=== PATIENT | male | born 1960 | race Caucasian/White ===

== ENCOUNTER 2018-02-23 11:12 | Day surgery (SDC) | payer BC ==
[~2018-02-23 11:12] MED LIST: Lactated Ringers 1,000 ML IV SCH; Midazolam 1 MG/ML 2 ML SDV ONE; Propofol 200 MG/20 ML SDV ONE; fentaNYL 100 MCG/2 ML SDV ONE
--- NOTE | 2018-02-23 11:36 | PCM.PREANE ---
Preanesthetic Assessment - Anesthesia/Transfusion/Family Hx Anesthesia History: Prior Anesthesia Without Reaction Family History of Anesthesia Reaction: No Transfusion History: No Prior Transfusion(s) - Review of Systems General: No Symptoms Pulmonary: No Symptoms Cardiovascular: No Symptoms Gastrointestinal: No Symptoms Neurological: No Symptoms Other: Reports: None - Physical Assessment NPO Status Date: 02/22/18 O2 Sat by Pulse Oximetry: 96 Respiratory Rate: 16 Vital Signs: Last Vital Signs Temp 36.8 C 02/23/18 11:22 Pulse 66 02/23/18 11:22 Resp 16 02/23/18 11:22 BP 136/75 02/23/18 11:22 Pulse Ox 96 02/23/18 11:22 Height: 1.83 m Weight: 110.677 kg ASA Class: 2 Mental Status: Alert & Oriented x3 Airway Class: Mallampati = 1 Dentition: Reports: Normal Dentition ROM/Head Extension: Full Lungs: Clear to Auscultation, Normal Respiratory Effort Cardiovascular: Regular Rate, Regular Rhythm - Allergies Allergies/Adverse Reactions: Allergies Allergy/AdvReac Type Severity Reaction Status Date / Time aspirin Allergy Stomach Verified 02/21/18 08:20 Upset - Anesthesia Plan Pre-Op Medication Ordered: None - Acknowledgements Anesthesia Type Planned: MAC Pt an Appropriate Candidate for the Planned Anesthesia: Yes Alternatives and Risks of Anesthesia Discussed w Pt/Guardian: Yes Pt/Guardian Understands and Agrees with Anesthesia Plan: Yes PreAnesthesia Questionnaire HEENT History: Reports: Impaired Vision Other HEENT History: wears glasses Cardiovascular History: Reports: None Respiratory History: Reports: None Gastrointestinal History: Reports: GERD Genitourinary History: Reports: Renal Calculus Musculoskeletal History: Reports: Fracture Other Musculoskeletal History: hx alfredo wrist fx's Neurological History: Reports: None Psychiatric History: Reports: None Endocrine/Metabolic History: Reports: None Hematologic History: Reports: None Immunologic History: Reports: None Oncologic (Cancer) History: Reports: None Dermatologic History: Reports: None - Infectious Disease History Infectious Disease History: Reports: Chicken Pox - Past Surgical History Head Surgeries/Procedures: Reports: None HEENT Surgical History: Reports: None Cardiovascular Surgical History: Reports: None Respiratory Surgical History: Reports: None GI Surgical History: Reports: Hernia Repair/Other, Other (See Below) Other GI Surgeries/Procedures: alfredo inguinal hernia repair Male Surgical History: Reports: Kidney Stone Extraction Endocrine Surgical History: Reports: None Neurological Surgical History: Reports: None Musculoskeletal Surgical History: Reports: Arthroscopic Knee, ORIF Other Musculoskeletal Surgeries/Procedures:: pinning left wrist fx, closed reduction right wrist, removal of hardware to left wrist Oncologic Surgical History: Reports: None Dermatological Surgical History: Reports: None - SUBSTANCE USE Smoking Status *Q: Never Smoker Tobacco Use Within Last Twelve Months: No Days Per Week of Alcohol Use: 0 Recreational Drug Use History: No - HOME MEDS Home Medications: Home Meds Calcium Carbonate [Tums] 1 tab.chew CHEW ASDIRECTED PRN 02/21/18 [History] - CURRENT (IN HOUSE) MEDS Current Meds: Current Medications Lactated Ringer's (Ringers, Lactated) 1,000 mls @ 125 mls/hr IV ASDIRECTED [facility] Last Admin: 02/23/18 11:25 Dose: 125 mls/hr Discontinued Medications Fentanyl (Sublimaze) Confirm Administered Dose 100 mcg .ROUTE .STK-MED ONE Stop: 02/23/18 08:41 Midazolam HCl (Versed 1 Mg/Ml) Confirm Administered Dose 2 mg .ROUTE .STK-MED ONE Stop: 02/23/18 08:42 Propofol (Diprivan 20 Ml) Confirm Administered Dose 200 mg .ROUTE .STK-MED ONE Stop: 02/23/18 08:41
[2018-02-23] MEDS ORDERED: Propofol 200 MG/20 ML SDV ONE (11:45)
--- NOTE | 2018-02-23 12:13 | PCM.OPNOTE ---
- General Post-Op/Procedure Note Date of Surgery/Procedure: 02/23/18 Operative Procedure(s): egd w bx and colonoscopy w bx Findings: see [id number] Pre Op Diagnosis: gerd and blood in stool Post-Op Diagnosis: Same Primary Surgeon: Brice Ag Pathology: egd and colon TI (?) bx Complications: None Condition: Good
[2018-02-23 12:31] VITALS: BP 129/78
--- NOTE | 2018-02-23 12:41 | PCM48HPAN ---
Post Anesthesia Note - EVALUATION WITHIN 48HRS OF ANESTHETIC Vital Signs in Normal Range: Yes Patient Participated in Evaluation: Yes Respiratory Function Stable: Yes Airway Patent: Yes Cardiovascular Function Stable: Yes Hydration Status Stable: Yes Pain Control Satisfactory: Yes (cramping) Nausea and Vomiting Control Satisfactory: Yes Mental Status Recovered: Yes Resp Rate: 14
--- NOTE | 2018-02-23 20:34 | OR ---
SURGEON: Brice Ag MD DATE OF PROCEDURE: 02/23/2018 PREOPERATIVE DIAGNOSES: Gastroesophageal reflux disease and blood in stool. POSTOPERATIVE DIAGNOSIS: Gastroesophageal reflux disease and blood in stool. PROCEDURE PERFORMED: EGD with biopsy and colonoscopy with biopsy. PROCEDURE DETAILS: EGD: The patient was taken to the endoscopy room, and with the GLASS INSTALLER, Diprivan was administered. A well-lubricated EGD scope was gently inserted through the oropharynx, down the esophagus, passing through the gastroesophageal junction, into the stomach. The mucosa was examined upon the passage. Any etiology will be noted. Once in the stomach, we continued to advance to the distal antrum, passed through the pylorus into the second portion of the duodenum. Again, the mucosa was examined for any abnormality and etiology. The scope was then retrieved back to the stomach and then retroflexed to look at the fundus of the stomach. If a biopsy was indicated, we will biopsy the antrum, body, and gastroesophageal junction. The air will be sucked out while the scope is retrieved to reduce the patient's discomfort. The patient tolerated the procedure well. There were no intraoperative complications. Dr. Ag was present through the whole procedure. Prior to surgery, a time-out had been called, the patient identified, procedure identified and antibiotic administered. COLONOSCOPY: The patient was taken to the endoscopy room. A time out was called, patient identified, and procedure identified. Diprivan was then administrated. Patient went from awake to sleep, hearing doctor talking or door closing is normal. Perineum inspection and digital examination were then performed. A well-lubricated colonoscope was gently inserted through the rectum, advanced past the rectosigmoid junction, the descending colon, splenic flexure, transverse colon, hepatic flexure, ascending colon, arrived to the cecum. Cecum was identified as dictated in the finding. Then the scope was carefully withdrawn while attention was paid to the mucosal surface for any abnormality. Air will be sucked out during the scope withdrawal. At the rectum, retroflexed to examine any rectal diseases, fistula or hemorrhoids. During mucosal examination, picture taken and biopsy performed. Patient tolerated procedure well. There were no intraoperative complications, and Dr. Ag was present throughout the whole procedure. FINDINGS: EGD FINDINGS: 1. The patient is easily sedated with GLASS INSTALLER and Diprivan. The patient is soundly snoring. 2. Oropharynx and proximal esophagus are free of disease. No infection, stricture, or inflammation. Distal esophagus at GE junction at 40 shows mild color change consistent with mild acid reflux. Stomach rugae is normal in appearance and there is no blood, bile, or food observed. Antrum is mildly inflamed. Duodenum was grossly normal in appearance. Scope retrieved back to the stomach and retroflexed to look at the fundus of the stomach. There was no hiatal hernia. Biopsy done at antrum, body, GE junction at 40, and sucked out the air while scope pulling out. There was one tiny little polyp, like 2 mm, in the stomach body. It was biopsied and removed. COLONOSCOPY FINDINGS: 1. The patient is easily sedated with GLASS INSTALLER and Diprivan. The patient is soundly snoring. 2. Bowel prep is average with some stool ball release from the diverticula. Otherwise, there is some liquid stool. Bowel prep was above average. Colon is rather straight forward. Cecum indicated by ileocecal fold, one- to-one indentation, and appendiceal orifice. Light emittance is not observed. The terminal ileum is quite prominent, almost like a 2 cm mass. It was biopsied several times in the cecum. Other than that, the patient does not have other mass, polyp, inflammation, stricture, ulceration, AV malformation, blood. The patient does have diverticulitis on the left colon mostly and a couple of them in the right colon, nothing in the transverse colon. No signs or symptoms of diverticulitis, and the patient have internal hemorrhoid and external hemorrhoid. The patient would benefit from repeat colonoscopy 10 years from today or if the biopsy mass come back indicate otherwise may not be 10 years from today. If there is any concern on the terminal ileum mass, then probably would benefit a repeat colonoscopy in maybe 12-18 months. IBETH / GIOVANA /[id number] RANJIT
== END 2018-02-23 12:32 | disposition home or self-care (01) ==
LOC: MW.SDS 11:12
PROVIDERS: ATTEND Surgery
DX: K29.50 Unspecified chronic gastritis without bleeding (principal); K20.9 Esophagitis, unspecified; K64.8 Other hemorrhoids; K64.4 Residual hemorrhoidal skin tags; K63.89 Other specified diseases of intestine; K21.9 Gastro-esophageal reflux disease without esophagitis; Z79.2 Long term (current) use of antibiotics; Z79.899 Other long term (current) drug therapy; Z88.6 Allergy status to analgesic agent; Z98.890 Other specified postprocedural states; Z87.442 Personal history of urinary calculi; Z80.0 Family history of malignant neoplasm of digestive organs
CPT/HCPCS: 43239; 45380; 88305; 88312; J2250; J3010; J7120; 00813; J2704

== ENCOUNTER 2018-05-16 20:30 | Observation (INO) | payer BC ==
[2018-05-16] MEDS ORDERED: Sodium Chloride 0.9% 10 ML Syringe FLUSH PRN (20:47)
[2018-05-16] MEDS ORDERED: Sodium Chloride 0.9% 2.5 ML Syringe FLUSH PRN (20:47)
[2018-05-16] MEDS ORDERED: Aspirin 325 MG Tab PO ONE (20:48)
--- NOTE | 2018-05-16 20:48 | EDM.PDOC ---
ED HPI GENERAL MEDICAL PROBLEM - General Chief Complaint: Respiratory Problem Stated Complaint: SHORTNESS OF BREATH Time Seen by Provider: 05/16/18 20:32 - History of Present Illness INITIAL COMMENTS - FREE TEXT/NARRATIVE: HISTORY AND PHYSICAL: History of present illness: Patient is a 58-year-old white male who presently does not smoke but has a 2030- pack-year history who presents with a concern of exertional dyspnea worse over the last 1 month he denies chest pain although he does describe inability to take a deep breath and states that this is absolutely exertional and he first noted it a month ago and is going up some stairs. He did no diaphoresis nausea vomiting or palpitations Review of systems: As per history of present illness and below otherwise all systems reviewed and negative. Past medical history: As per history of present illness and as reviewed below otherwise noncontributory. Surgical history: As per history of present illness and as reviewed below otherwise noncontributory. Social history: No reported history of drug or alcohol abuse. Family history: As per history of present illness and as reviewed below otherwise noncontributory. Physical exam: HEENT: Atraumatic, normocephalic, pupils reactive, negative for conjunctival pallor or scleral icterus, mucous membranes moist, throat clear, neck supple, nontender, trachea midline. Lungs: Clear to auscultation, diminished breath sounds equal bilaterally, chest nontender. Heart: S1S2, regular, negative for clicks, rubs, or JVD. Abdomen: Soft, nondistended, nontender. Negative for masses or hepatosplenomegaly. Negative for costovertebral tenderness. Pelvis: Stable nontender. Genitourinary: Deferred. Rectal: Deferred. Extremities: Atraumatic, negative for cords or calf pain. Neurovascular unremarkable. Neuro: Awake, alert, oriented. Cranial nerves II through XII unremarkable. Cerebellum unremarkable. Motor and sensory unremarkable throughout. Exam nonfocal. Diagnostics: CBC CMP PT/INR troponin and BNP chest x-ray EKG Therapeutics: IV O2 monitor aspirin 324 mg Impression: #1 exertional dyspnea Definitive disposition and diagnosis as appropriate pending reevaluation and review of above. - Related Data Allergies Allergy/AdvReac Type Severity Reaction Status Date / Time aspirin Allergy Stomach Verified 05/16/18 20:31 Upset Home Meds: Home Meds Calcium Carbonate [Tums] 1 tab.chew CHEW ASDIRECTED PRN 02/21/18 [History] Past Medical History HEENT History: Reports: Impaired Vision Other HEENT History: wears glasses Cardiovascular History: Reports: None Respiratory History: Reports: None Gastrointestinal History: Reports: GERD Genitourinary History: Reports: Renal Calculus Musculoskeletal History: Reports: Fracture Other Musculoskeletal History: hx alfredo wrist fx's Neurological History: Reports: None Psychiatric History: Reports: None Endocrine/Metabolic History: Reports: None Hematologic History: Reports: None Immunologic History: Reports: None Oncologic (Cancer) History: Reports: None Dermatologic History: Reports: None - Infectious Disease History Infectious Disease History: Reports: Chicken Pox - Past Surgical History Head Surgeries/Procedures: Reports: None HEENT Surgical History: Reports: None Cardiovascular Surgical History: Reports: None Respiratory Surgical History: Reports: None GI Surgical History: Reports: Hernia Repair/Other, Other (See Below) Other GI Surgeries/Procedures: alfredo inguinal hernia repair Male Surgical History: Reports: Kidney Stone Extraction Endocrine Surgical History: Reports: None Neurological Surgical History: Reports: None Musculoskeletal Surgical History: Reports: Arthroscopic Knee, ORIF Other Musculoskeletal Surgeries/Procedures:: pinning left wrist fx, closed reduction right wrist, removal of hardware to left wrist Oncologic Surgical History: Reports: None Dermatological Surgical History: Reports: None ED ROS GENERAL - Review of Systems Review Of Systems: ROS reveals no pertinent complaints other than HPI. ED EXAM, GENERAL - Physical Exam Exam: See Below (See dictation) Course - Vital Signs Last Recorded V/S: Last Vital Signs Temp 36.7 C 05/16/18 20:30 Pulse 71 05/16/18 21:28 Resp 19 05/16/18 21:28 BP 117/69 05/16/18 21:28 Pulse Ox 93 L 05/16/18 21:28 - Orders/Labs/Meds Orders: Active Orders 24 hr Category Date Time Status Cardiac Monitoring [RC] . DIRECTED Care 05/16/18 20:47 Active EKG Documentation Completion [RC] STAT Care 05/16/18 20:47 Active Oxygen Therapy [RC] ASDIRECTED Care 05/16/18 20:47 Active Pulse Oximetry [RC] ASDIRECTED Care 05/16/18 20:47 Active Chest 1V Frontal [CR] Stat Exams 05/16/18 20:47 Taken Sodium Chloride 0.9% [Saline Flush] Med 05/16/18 20:47 Active 10 ml FLUSH ASDIRECTED PRN Sodium Chloride 0.9% [Saline Flush] Med 05/16/18 20:47 Active 2.5 ml FLUSH ASDIRECTED PRN Saline Lock Insert [OM.PC] Stat Oth 05/16/18 20:47 Ordered Medication Orders Sodium Chloride (Saline Flush) 10 ml FLUSH ASDIRECTED PRN PRN Reason: Keep Vein Open Sodium Chloride (Saline Flush) 2.5 ml FLUSH ASDIRECTED PRN PRN Reason: Keep Vein Open Labs: Laboratory Tests 05/16/18 05/16/18 05/16/18 Range/Units 20:53 20:53 20:53 WBC 8.91 (4.0-11.0) K/uL RBC 4.80 (4.50-5.90) M/uL Hgb 13.6 (13.0-17.0) g/dL Hct 40.1 (38.0-50.0) % MCV 83.5 (80.0-98.0) fL MCH 28.3 (27.0-32.0) pg MCHC 33.9 (31.0-37.0) g/dL RDW Std Deviation 39.5 (28.0-62.0) fl RDW Coeff of Jennifer 13 (11.0-15.0) % Plt Count 183 (150-400) K/uL MPV 8.40 (7.40-12.00) fL Neut % (Auto) 56.9 (48.0-80.0) % Lymph % (Auto) 31.0 (16.0-40.0) % [place] % (Auto) 9.9 (0.0-15.0) % Eos % (Auto) 2.1 (0.0-7.0) % Baso % (Auto) 0.1 (0.0-1.5) % Neut # (Auto) 5.1 (1.4-5.7) K/uL Lymph # (Auto) 2.8 H (0.6-2.4) K/uL [place] # (Auto) 0.9 H (0.0-0.8) K/uL Eos # (Auto) 0.2 (0.0-0.7) K/uL Baso # (Auto) 0.0 (0.0-0.1) K/uL Nucleated RBC % 0.0 /100WBC Nucleated RBCs # 0 K/uL INR 1.01 D-Dimer, Quantitative 0.44 (0.0-0.52) mg/LFEU Sodium 143 (136-148) mmol/L Potassium 3.7 (3.5-5.1) mmol/L Chloride 108 H (98-107) mmol/L Carbon Dioxide 27.7 (21.0-32.0) mmol/L BUN 20 H (7.0-18.0) mg/dL Creatinine 1.1 (0.8-1.3) mg/dL Est Cr Clr Drug Dosing 82.30 mL/min Estimated GFR (MDRD) > 60.0 ml/min Glucose 80 (74-106) mg/dL Calcium 7.9 L (8.5-10.1) mg/dL Total Bilirubin 0.4 (0.2-1.0) mg/dL AST 28 (15-37) IU/L ALT 46 (14-63) IU/L Alkaline Phosphatase 72 (46-116) U/L Troponin I < 0.050 (0.000-0.056) ng/mL Total Protein 6.6 (6.4-8.2) g/dL Albumin 3.6 (3.4-5.0) g/dL Globulin 3.0 (2.0-3.5) g/dL Albumin/Globulin Ratio 1.2 L (1.3-2.8) Meds: Medications Generic Name Dose Route Start Last Admin Trade Name Freq PRN Reason Stop Dose Admin Sodium Chloride 10 ml 05/16/18 20:47 Saline Flush FLUSH ASDIRECTED PRN Keep Vein Open Sodium Chloride 2.5 ml 05/16/18 20:47 Saline Flush FLUSH ASDIRECTED PRN Keep Vein Open Discontinued Medications Generic Name Dose Route Start Last Admin Trade Name Freq PRN Reason Stop Dose Admin Aspirin 325 mg 05/16/18 20:48 Aspirin PO 05/16/18 20:49 ONETIME ONE Departure - Departure Time of Disposition: 21:50 Disposition: Refer to Observation Condition: Good Clinical Impression: Exertional dyspnea - Discharge Information Referrals: PCP,None [Primary Care Provider] - Forms: ED Department Discharge - My Orders Last 24 Hours: My Active Orders 05/16/18 20:47 Cardiac Monitoring [RC] . DIRECTED EKG Documentation Completion [RC] STAT Oxygen Therapy [RC] ASDIRECTED Pulse Oximetry [RC] ASDIRECTED Chest 1V Frontal [CR] Stat Sodium Chloride 0.9% [Saline Flush] 10 ml FLUSH ASDIRECTED PRN Sodium Chloride 0.9% [Saline Flush] 2.5 ml FLUSH ASDIRECTED PRN Saline Lock Insert [OM.PC] Stat - Assessment/Plan Last 24 Hours: My Active Orders 05/16/18 20:47 Cardiac Monitoring [RC] . DIRECTED EKG Documentation Completion [RC] STAT Oxygen Therapy [RC] ASDIRECTED Pulse Oximetry [RC] ASDIRECTED Chest 1V Frontal [CR] Stat Sodium Chloride 0.9% [Saline Flush] 10 ml FLUSH ASDIRECTED PRN Sodium Chloride 0.9% [Saline Flush] 2.5 ml FLUSH ASDIRECTED PRN Saline Lock Insert [OM.PC] Stat
[2018-05-16 21:32] LABS: CHLORIDE,CL 108 mmol/L (98-107); SODIUM,NA 143 mmol/L (136-148)
[2018-05-16] MEDS ORDERED: Ondansetron 4 MG/2 ML SDV IVPUSH PRN (23:11)
--- NOTE | 2018-05-16 23:17 | PCM.HP ---
H&P History of Present Illness - General Date of Service: 05/17/18 Admit Problem/Dx: Admission Diagnosis/Problem Admission Diagnosis/Problem Dyspnea - History of Present Illness Initial Comments - Free Text/Narative: 58 yo male who presents with one month history of exertional dyspnea. He reports he get short of breath with walking the hallways in the house. He has to move more slowly than he is used to. He reports some wheezing. He has a long history of smoking but quit three years ago. still smokes. He has gained thirty lbs this year. reports he has apnic spells at night. He denies any orthopnea or leg edema. - Related Data Allergies/Adverse Reactions: Allergies Allergy/AdvReac Type Severity Reaction Status Date / Time aspirin Allergy Stomach Verified 05/16/18 20:31 Upset Home Medications: Home Meds RX: Calcium Carbonate [Tums] 1 tab.chew CHEW ASDIRECTED PRN 02/21/18 [History] RX: Albuterol [Proventil HFA] 1 puff INH QID PRN #1 inhaler 05/17/18 [Rx] Past Medical History HEENT History: Reports: Impaired Vision Other HEENT History: wears glasses Cardiovascular History: Reports: None Respiratory History: Reports: None Gastrointestinal History: Reports: GERD Genitourinary History: Reports: Renal Calculus Musculoskeletal History: Reports: Fracture Other Musculoskeletal History: hx alfredo wrist fx's Neurological History: Reports: None Psychiatric History: Reports: None Endocrine/Metabolic History: Reports: None Hematologic History: Reports: None Immunologic History: Reports: None Oncologic (Cancer) History: Reports: None Dermatologic History: Reports: None - Infectious Disease History Infectious Disease History: Reports: Chicken Pox - Past Surgical History Head Surgeries/Procedures: Reports: None HEENT Surgical History: Reports: None Cardiovascular Surgical History: Reports: None Respiratory Surgical History: Reports: None GI Surgical History: Reports: Hernia Repair/Other, Other (See Below) Other GI Surgeries/Procedures: alfredo inguinal hernia repair Male Surgical History: Reports: Kidney Stone Extraction Endocrine Surgical History: Reports: None Neurological Surgical History: Reports: None Musculoskeletal Surgical History: Reports: Arthroscopic Knee, ORIF Other Musculoskeletal Surgeries/Procedures:: pinning left wrist fx, closed reduction right wrist, removal of hardware to left wrist Oncologic Surgical History: Reports: None Dermatological Surgical History: Reports: None Social & Family History - Family History Family Medical History: Noncontributory - Tobacco Use Smoking Status *Q: Never Smoker - Recreational Drug Use Recreational Drug Use: No H&P Review of Systems - Review of Systems: Review Of Systems: ROS reveals no pertinent complaints other than HPI. Exam - Exam Exam: See Below - Vital Signs Vital Signs: Last Vital Signs Temp 36.8 C 05/16/18 22:21 Pulse 64 05/16/18 22:21 Resp 20 05/16/18 22:21 BP 130/71 05/16/18 22:21 Pulse Ox 95 05/16/18 22:21 Weight: 120.4 kg - Exam General: Alert, Oriented HEENT: Normal Nasal Septum Neck: Supple Lungs: Clear to Auscultation, Normal Respiratory Effort Cardiovascular: Regular Rate, Regular Rhythm GI/Abdominal Exam: Normal Bowel Sounds, Soft, Non-Tender Extremities: Normal Range of Motion Skin: Warm, Dry, Intact - Patient Data Lab Results Last 24 hrs: Laboratory Results - last 24 hr 05/16/18 05/16/18 05/16/18 Range/Units 20:53 20:53 20:53 WBC 8.91 (4.0-11.0) K/uL RBC 4.80 (4.50-5.90) M/uL Hgb 13.6 (13.0-17.0) g/dL Hct 40.1 (38.0-50.0) % MCV 83.5 (80.0-98.0) fL MCH 28.3 (27.0-32.0) pg MCHC 33.9 (31.0-37.0) g/dL RDW Std Deviation 39.5 (28.0-62.0) fl RDW Coeff of Jennifer 13 (11.0-15.0) % Plt Count 183 (150-400) K/uL MPV 8.40 (7.40-12.00) fL Neut % (Auto) 56.9 (48.0-80.0) % Lymph % (Auto) 31.0 (16.0-40.0) % [place] % (Auto) 9.9 (0.0-15.0) % Eos % (Auto) 2.1 (0.0-7.0) % Baso % (Auto) 0.1 (0.0-1.5) % Neut # (Auto) 5.1 (1.4-5.7) K/uL Lymph # (Auto) 2.8 H (0.6-2.4) K/uL [place] # (Auto) 0.9 H (0.0-0.8) K/uL Eos # (Auto) 0.2 (0.0-0.7) K/uL Baso # (Auto) 0.0 (0.0-0.1) K/uL Nucleated RBC % 0.0 /100WBC Nucleated RBCs # 0 K/uL INR 1.01 D-Dimer, Quantitative 0.44 (0.0-0.52) mg/LFEU Sodium 143 (136-148) mmol/L Potassium 3.7 (3.5-5.1) mmol/L Chloride 108 H (98-107) mmol/L Carbon Dioxide 27.7 (21.0-32.0) mmol/L BUN 20 H (7.0-18.0) mg/dL Creatinine 1.1 (0.8-1.3) mg/dL Est Cr Clr Drug Dosing 82.30 mL/min Estimated GFR (MDRD) > 60.0 ml/min Glucose 80 (74-106) mg/dL Calcium 7.9 L (8.5-10.1) mg/dL Total Bilirubin 0.4 (0.2-1.0) mg/dL AST 28 (15-37) IU/L ALT 46 (14-63) IU/L Alkaline Phosphatase 72 (46-116) U/L Troponin I < 0.050 (0.000-0.056) ng/mL Total Protein 6.6 (6.4-8.2) g/dL Albumin 3.6 (3.4-5.0) g/dL Globulin 3.0 (2.0-3.5) g/dL Albumin/Globulin Ratio 1.2 L (1.3-2.8) Result Diagrams: 05/16/18 20:53 05/16/18 20:53 Problem List Initiated/Reviewed/Updated: Yes Orders Last 24hrs: Active Orders 24 hr Category Date Time Status Patient Status [ADT] Stat ADT 05/16/18 21:51 Active Cardiac Monitoring [RC] . DIRECTED Care 05/16/18 20:47 Active Oxygen Therapy [RC] ASDIRECTED Care 05/16/18 20:47 Active Oxygen Therapy [RC] PRN Care 05/16/18 23:11 Ordered Pulse Oximetry [RC] ASDIRECTED Care 05/16/18 20:47 Active RT Aerosol Therapy [RC] ASDIRECTED Care 05/16/18 23:12 Ordered Up ad Joy [RC] ASDIRECTED Care 05/16/18 23:11 Ordered VTE/DVT Education [RC] PER UNIT ROUTINE Care 05/16/18 23:11 Ordered Vital Signs [RC] Q4H Care 05/16/18 23:11 Ordered Regular Diet [DIET] Diet 05/16/18 Breakfast Ordered Chest 1V Frontal [CR] Stat Exams 05/16/18 20:47 Taken TROPONIN I [CHEM] Q6H Lab 05/16/18 03:00 Ordered TROPONIN I [CHEM] Q6H Lab 05/16/18 09:00 Ordered Albuterol/Ipratropium [DuoNeb 3.0-0.5 MG/3 ML] Med 05/17/18 00:00 Ordered 3 ml NEB Q6HRRT Ondansetron [Zofran] Med 05/16/18 23:11 Ordered 4 mg IVPUSH Q4H PRN Sodium Chloride 0.9% [Saline Flush] Med 05/16/18 20:47 Active 10 ml FLUSH ASDIRECTED PRN Sodium Chloride 0.9% [Saline Flush] Med 05/16/18 20:47 Active 2.5 ml FLUSH ASDIRECTED PRN Saline Lock Insert [OM.PC] Stat Oth 05/16/18 20:47 Ordered Sequential Compression Device [OM.PC] Per Unit Routine Oth 05/16/18 23:11 Ordered Resuscitation Status Routine Resus Stat 05/16/18 23:11 Ordered Medication Orders Sodium Chloride (Saline Flush) 10 ml FLUSH ASDIRECTED PRN PRN Reason: Keep Vein Open Sodium Chloride (Saline Flush) 2.5 ml FLUSH ASDIRECTED PRN PRN Reason: Keep Vein Open Assessment/Plan Comment:: 58 yo male who presents with exertional dyspnea. ED provider requested admission for ACS rule out. Will trend cardiac enzymes. Will try albuterol nebs. Update: patient did have improvement in symptoms with duonebs. He rule out for acute coronary syndrome with serial negative cardiac enzymes. He is to be discharged home to follow up with [facility]. He was given a prescription for albuterol inhaler.
[2018-05-17] MEDS: Albuterol/Ipratropium 3.0-0.5 MG/3 ML Neb Soln NEB SCH ×2 (00:19→07:02)
[2018-05-17 07:45] VITALS: BP 127/63
--- NOTE | 2018-05-17 15:29 | CR ---
EXAM DATE: 05/16/18 PATIENT'S AGE: 58 Patient: RENA CRYSTAL Facility: [place], [place] Site . Site : [id number] Study: XRay Chest [id number]/11/2018 9:13:41 PM Ordering Physician: Rajni Borja Final Report: INDICATION: Shortness of breath, no pain TECHNIQUE: Chest radiograph 1 view COMPARISON: 10/17/16 FINDINGS: Mediastinum: The mediastinum is normal in appearance. The heart silhouette is normal in size and morphology. Lungs: Both lungs are unremarkable in appearance. No sign of pleural effusion seen. No pneumothorax is identified. Bones and soft tissue: Unremarkable for age. IMPRESSION: 1. No acute cardiopulmonary disease is seen. Dictated by: Philippe Franz MD @ 05/16/2018 21:14:34 (Electronic Signature) Report Signed by Proxy. AL[facility] HYDE MEDICAL CENTERJaspreet
== END 2018-05-17 11:20 | disposition home or self-care (01) ==
LOC: MW.ED 20:30 → MW.MS 21:51
PROVIDERS: ADMIT Internal Medicine; ATTEND Internal Medicine
DX: R06.02 Shortness of breath (principal); R06.00 Dyspnea, unspecified; Z87.891 Personal history of nicotine dependence; Z88.6 Allergy status to analgesic agent; K21.9 Gastro-esophageal reflux disease without esophagitis
CPT/HCPCS: 36415; 71045; 80053; 84484; 85025; 85379; 85610; 93005; 94640; 99285; G0378; 99283

== ENCOUNTER 2018-08-12 20:47 | Emergency (ER) | payer BC ==
[2018-08-12] MEDS ORDERED: methylPREDNISolone Sodium Succinate 125 MG/2 ML SDV IM ONE (21:17)
--- NOTE | 2018-08-12 21:19 | EDM.PDOC ---
ED HPI GENERAL MEDICAL PROBLEM - General Chief Complaint: Skin Complaint Stated Complaint: POSSIBLE AN ALERGIC REACTION TO SOME CREAM Time Seen by Provider: 08/12/18 21:17 Source of Information: Reports: Patient History Limitations: Reports: No Limitations - History of Present Illness INITIAL COMMENTS - FREE TEXT/NARRATIVE: HISTORY AND PHYSICAL: History of present illness: Patient is a 58-year-old male here with complaint of itchy rash. He states that 1 week ago he used some triamcinolone cream for a rash on his left lower leg due to his [employer] boots. He states that since then he started developing a rash start physical body. Rash is from his face all the way down on his arms, abdomen , back and legs. He states the triamcinolone cream is the only thing new that he can think of that may be causing the rash. He otherwise denies any new medications, foods, detergents, soaps, etc. He does live with his and states that she does not have a rash. He denies any recent travel or staying in hotels. He denies any recent illness, fevers, chills, cough, nasal congestion, chest pain, shortness of breath, nausea, vomiting, diarrhea, abdominal pain. He states he is taking Benadryl without relief of symptoms. Review of systems: As per history of present illness and below otherwise all systems reviewed and negative. Past medical history: As per history of present illness and as reviewed below otherwise noncontributory. Surgical history: As per history of present illness and as reviewed below otherwise noncontributory. Social history: No reported history of drug or alcohol abuse. Family history: As per history of present illness and as reviewed below otherwise noncontributory. Physical exam: General: Patient sitting comfortably in no acute distress and nontoxic appearing HEENT: Atraumatic, normocephalic, pupils reactive, negative for conjunctival pallor or scleral icterus, mucous membranes moist, throat clear, neck supple, nontender, trachea midline. No meningeal signs. Lungs: Clear to auscultation, breath sounds equal bilaterally, chest nontender. Heart: S1S2, regular, negative for clicks, rubs, or overt murmur. Abdomen: Soft, nondistended, nontender. Negative for masses or hepatosplenomegaly. Negative for costovertebral tenderness. Pelvis: Stable nontender. Genitourinary: Deferred. Rectal: Deferred. Skin: There is diffuse pink papular rash, some with crusting that appears to be due to excoriations. There is no blisters, vesicles, or pustules. There is no rash on the hands or webspaces of the fingers. Extremities: Atraumatic, negative for cords or calf pain. Neurovascular unremarkable. Neuro: Awake, alert, oriented. Cranial nerves II through XII unremarkable. Cerebellum unremarkable. Motor and sensory unremarkable throughout. Exam nonfocal. Notes: Diagnostics: None Therapeutics: Solumedrol 125mg IM Prescriptions: Medrol dosepak Impression: Pruritic rash Plan: 1. Take medication as prescribed. You may take benadryl and use benadryl cream as needed. 2. Follow up with primary care provider. 3 Return to ED as needed as discussed Definitive disposition and diagnosis as appropriate pending reevaluation and review of above. - Related Data Allergies Allergy/AdvReac Type Severity Reaction Status Date / Time aspirin Allergy Stomach Verified 08/12/18 20:50 Upset Home Meds: Home Meds Calcium Carbonate [Tums] 1 tab.chew CHEW ASDIRECTED PRN 02/21/18 [History] Albuterol [Proventil HFA] 1 puff INH QID PRN #1 inhaler 05/17/18 [Rx] Past Medical History HEENT History: Reports: Impaired Vision Other HEENT History: wears glasses Cardiovascular History: Reports: None Respiratory History: Reports: None Gastrointestinal History: Reports: GERD Genitourinary History: Reports: Renal Calculus Musculoskeletal History: Reports: Fracture Other Musculoskeletal History: hx alfredo wrist fx's Neurological History: Reports: None Psychiatric History: Reports: None Endocrine/Metabolic History: Reports: None Hematologic History: Reports: None Immunologic History: Reports: None Oncologic (Cancer) History: Reports: None Dermatologic History: Reports: None - Infectious Disease History Infectious Disease History: Reports: Chicken Pox - Past Surgical History Head Surgeries/Procedures: Reports: None HEENT Surgical History: Reports: None Cardiovascular Surgical History: Reports: None Respiratory Surgical History: Reports: None GI Surgical History: Reports: Hernia Repair/Other, Other (See Below) Other GI Surgeries/Procedures: alfredo inguinal hernia repair Male Surgical History: Reports: Kidney Stone Extraction Endocrine Surgical History: Reports: None Neurological Surgical History: Reports: None Musculoskeletal Surgical History: Reports: Arthroscopic Knee, ORIF Other Musculoskeletal Surgeries/Procedures:: pinning left wrist fx, closed reduction right wrist, removal of hardware to left wrist Oncologic Surgical History: Reports: None Dermatological Surgical History: Reports: None Social & Family History - Family History Family Medical History: Noncontributory ED ROS GENERAL - Review of Systems Review Of Systems: ROS reveals no pertinent complaints other than HPI. ED EXAM, SKIN/RASH Exam: See Below (see dictation) Course - Vital Signs Last Recorded V/S: Last Vital Signs Temp 37.4 C 08/12/18 20:47 Pulse 79 08/12/18 20:47 Resp 18 08/12/18 20:47 BP 138/63 08/12/18 20:47 Pulse Ox 96 08/12/18 20:47 - Orders/Labs/Meds Meds: Medications Discontinued Medications Generic Name Dose Route Start Last Admin Trade Name Freq PRN Reason Stop Dose Admin Methylprednisolone Sodium Succinate 125 mg 08/12/18 21:17 08/12/18 21:38 Solu-Medrol IM 08/12/18 21:18 125 mg ONETIME ONE Administration Departure - Departure Time of Disposition: 21:38 Disposition: Home, Self-Care 01 Condition: Good Clinical Impression: Pruritic rash - Discharge Information Instructions: Pruritus, Rash, [id number] Referrals: PCP,None [Primary Care Provider] - Forms: ED Department Discharge Additional Instructions: The following information is given to patients seen in the emergency department who are being discharged to home. This information is to outline your options for follow-up care. We provide all patients seen in our emergency department with a follow-up referral. The need for follow-up, as well as the timing and circumstances, are variable depending upon the specifics of your emergency department visit. If you don't have a primary care physician on staff, we will provide you with a referral. We always advise you to contact your personal physician following an emergency department visit to inform them of the circumstance of the visit and for follow-up with them and/or the need for any referrals to a consulting specialist. The emergency department will also refer you to a specialist when appropriate. This referral assures that you have the opportunity for follow-up care with a specialist. All of these measure are taken in an effort to provide you with optimal care, which includes your follow-up. Under all circumstances we always encourage you to contact your private physician who remains a resource for coordinating your care. When calling for follow-up care, please make the office aware that this follow-up is from your recent emergency room visit. If for any reason you are refused follow-up, please contact the [facility] Emergency Department at and asked to speak to the emergency department charge nurse. [facility] [address], [place] [address] [facility] [address] [place] [id number] 1. Take medication as prescribed. You may take benadryl and use benadryl cream as needed. 2. Follow up with primary care provider. 3 Return to ED as needed as discussed
[2018-08-12 21:48] VITALS: BP 140/69
== END 2018-08-12 21:48 | disposition home or self-care (01) ==
LOC: MW.ED 20:47
DX: R21 Rash and other nonspecific skin eruption (principal); L29.9 Pruritus, unspecified
CPT/HCPCS: 96372; 99283; J2930; 99282

== ENCOUNTER 2020-06-12 06:45 | Day surgery (SDC) | payer BC ==
[~2020-06-12 06:45] MED LIST changes: -Midazolam 1 MG/ML 2 ML SDV ONE; -Propofol 200 MG/20 ML SDV ONE; -fentaNYL 100 MCG/2 ML SDV ONE
[2020-06-12] MEDS ORDERED: fentaNYL 100 MCG/2 ML SDV ONE (06:58)
[2020-06-12] MEDS ORDERED: Propofol 200 MG/20 ML SDV ONE (06:58)
[2020-06-12] MEDS ORDERED: Lidocaine 2% 5 ML SDV ONE (06:58)
--- NOTE | 2020-06-12 07:15 | PCM.PREANE ---
Preanesthetic Assessment - Anesthesia/Transfusion/Family Hx Anesthesia History: Prior Anesthesia Without Reaction Family History of Anesthesia Reaction: No Transfusion History: No Prior Transfusion(s) - Review of Systems General: No Symptoms Pulmonary: No Symptoms Cardiovascular: No Symptoms Neurological: No Symptoms Other: Reports: None - Physical Assessment Height: 6 ft Weight: 118.388 kg ASA Class: 2 Mental Status: Alert & Oriented x3 Airway Class: Mallampati = 2 Dentition: Reports: Partial ROM/Head Extension: Full Lungs: Clear to Auscultation, Normal Respiratory Effort Cardiovascular: Regular Rate, Regular Rhythm - Allergies Allergies/Adverse Reactions: Allergies Allergy/AdvReac Type Severity Reaction Status Date / Time aspirin Allergy Stomach Verified 06/08/20 12:03 Upset - Blood Blood Available: No - Anesthesia Plan Pre-Op Medication Ordered: None - Acknowledgements Anesthesia Type Planned: General Anesthesia (tiva) Pt an Appropriate Candidate for the Planned Anesthesia: Yes Alternatives and Risks of Anesthesia Discussed w Pt/Guardian: Yes Pt/Guardian Understands and Agrees with Anesthesia Plan: Yes Additional Comments: PMH: hyperthyroid- on tapazole, GERD PLAN: tiva PreAnesthesia Questionnaire HEENT History: Reports: Other (See Below) Other HEENT History: wears glasses, has partial denture but will leave it at home Cardiovascular History: Reports: None Respiratory History: Reports: None Gastrointestinal History: Reports: GERD Genitourinary History: Reports: Renal Calculus Musculoskeletal History: Reports: Fracture Other Musculoskeletal History: hx alfredo wrist fx's Neurological History: Psychiatric History: Reports: None Endocrine/Metabolic History: Reports: Hypothyroidism, Obesity/BMI 30+ Hematologic History: Reports: None Immunologic History: Reports: None Oncologic (Cancer) History: Reports: None Dermatologic History: Reports: None - Infectious Disease History Infectious Disease History: Reports: Chicken Pox - Past Surgical History Head Surgeries/Procedures: Reports: None HEENT Surgical History: Reports: None Cardiovascular Surgical History: Reports: None Respiratory Surgical History: Reports: None GI Surgical History: Reports: Hernia Repair/Other, Other (See Below) Other GI Surgeries/Procedures: alfredo inguinal hernia repair, Umbilical Hernia repair Male Surgical History: Reports: Kidney Stone Extraction Endocrine Surgical History: Reports: None Neurological Surgical History: Reports: None Musculoskeletal Surgical History: Reports: Arthroscopic Knee, ORIF Other Musculoskeletal Surgeries/Procedures:: pinning left wrist fx, closed reduction right wrist, removal of hardware to left wrist Oncologic Surgical History: Reports: None Dermatological Surgical History: Reports: None - SUBSTANCE USE Smoking Status *Q: Never Smoker Recreational Drug Use History: No - HOME MEDS Home Medications: Home Meds Methimazole [Tapazole] 10 mg PO TID 06/08/20 [History] Pantoprazole Sodium [Protonix] 40 mg PO DAILY 06/08/20 [History] - CURRENT (IN HOUSE) MEDS Current Meds: Current Medications Lactated Ringer's (Ringers, Lactated) 1,000 mls @ 125 mls/hr IV ASDIRECTED SUSANA Discontinued Medications Fentanyl (Sublimaze) Confirm Administered Dose 100 mcg .ROUTE .STK-MED ONE Stop: 06/12/20 06:59 Lidocaine (Xylocaine-Mpf 2%) Confirm Administered Dose 5 ml .ROUTE .STK-MED ONE Stop: 06/12/20 06:59 Propofol (Diprivan 20 Ml) Confirm Administered Dose 400 mg .ROUTE .STK-MED ONE Stop: 06/12/20 06:59
[2020-06-12] MEDS ORDERED: Glycopyrrolate 0.2 MG/ML SDV ONE (07:51)
--- NOTE | 2020-06-12 08:20 | PCM.OPNOTE ---
- General Post-Op/Procedure Note Date of Surgery/Procedure: 06/12/20 Operative Procedure(s): colonoscopy Findings: see [id number] Pre Op Diagnosis: BRBPR Post-Op Diagnosis: Same Anesthesia Technique: Moderate Sedation Primary Surgeon: Brice Ag Complications: None Condition: Good
--- NOTE | 2020-06-12 08:40 | PCM.POSTAN ---
POST ANESTHESIA ASSESSMENT - MENTAL STATUS Mental Status: Alert, Oriented - VITAL SIGNS Vital Signs: Last Vital Signs Temp 36.8 C 06/12/20 06:55 Pulse 61 06/12/20 08:28 Resp 17 06/12/20 08:28 BP 94/58 L 06/12/20 08:28 Pulse Ox 92 L 06/12/20 08:28 - RESPIRATORY Respiratory Status: Respiratory Rate WNL, Airway Patent, O2 Saturation Stable - CARDIOVASCULAR CV Status: Pulse Rate WNL, Blood Pressure Stable - GASTROINTESTINAL GI Status: No Symptoms - POST OP HYDRATION Hydration Status: Adequate & Stable
[2020-06-12 09:02] VITALS: BP 102/58; PULSE 62
--- NOTE | 2020-06-12 09:24 | PCM48HPAN ---
Post Anesthesia Note - EVALUATION WITHIN 48HRS OF ANESTHETIC Vital Signs in Normal Range: Yes Patient Participated in Evaluation: Yes Respiratory Function Stable: Yes Airway Patent: Yes Cardiovascular Function Stable: Yes Hydration Status Stable: Yes Pain Control Satisfactory: Yes Nausea and Vomiting Control Satisfactory: Yes Mental Status Recovered: Yes Vital Signs: Last Vital Signs Temp 97.2 F 06/12/20 08:35 Pulse 62 06/12/20 08:35 Resp 14 06/12/20 08:35 BP 102/58 L 06/12/20 08:35 Pulse Ox 95 06/12/20 08:35
--- NOTE | 2020-06-12 11:22 | OR ---
SURGEON: Brice Ag MD DATE OF PROCEDURE: 06/12/2020 PREOPERATIVE DIAGNOSIS: Bright red blood per rectum. POSTOPERATIVE DIAGNOSIS: Bright red blood per rectum. PROCEDURE PERFORMED: Colonoscopy. DESCRIPTION OF PROCEDURE: The patient was taken to the endoscopy room. A time out was called, patient identified, and procedure identified. Diprivan was then administrated. Patient went from awake to sleep, hearing doctor talking or door closing is normal. Perineum inspection and digital examination were then performed. A well- lubricated colonoscope was gently inserted through the rectum, advanced past the rectosigmoid junction, the descending colon, splenic flexure, transverse colon, hepatic flexure, ascending colon, arrived to the cecum. Cecum was identified as dictated in the finding. Then the scope was carefully withdrawn while attention was paid to the mucosal surface for any abnormality. Air will be sucked out during the scope withdrawal. At the rectum, retroflexed to examine any rectal diseases, fistula or hemorrhoids. Patient tolerated procedure well. There were no intraoperative complications, and Dr. Ag was present throughout the whole procedure. PRIMARY SURGEON: Brice gA MD COMPLICATIONS: None. FINDINGS: 1. The patient is easily sedated with BRUSHER TENDER and Diprivan, the patient is soundly snoring. 2. Bowel prep is average to above average. No semi-formed stool, very little liquid stool. 3. Colon is rather straightforward. Cecum is indicated by ileocecal fold, one- to-one indentation, appendiceal orifice. ScopeGuide pointing south. Light emittance is not observed. Mucosa examined upon scope pulling out with some irrigation. The patient has diverticulosis on the left colon and a couple of diverticula on the right colon. There is nothing in the middle colon. No signs or symptoms of diverticulitis. Does not have mass, polyp, inflammation, stricture, ulceration, AV malformation, bleeding, ulcer, none of those. The patient has internal hemorrhoids, external hemorrhoids. The patient would benefit from repeat colonoscopy in 10 years from today or if clinically indicated otherwise. IBETH / GIOVANA /[id number] RANJIT
== END 2020-06-12 09:00 | disposition home or self-care (01) ==
LOC: MW.SDS 06:45
PROVIDERS: ATTEND Surgery
DX: K64.4 Residual hemorrhoidal skin tags (principal); K64.8 Other hemorrhoids; K57.31 Diverticulosis of large intestine without perforation or abscess with bleeding; E03.9 Hypothyroidism, unspecified; E66.9 Obesity, unspecified; E05.90 Thyrotoxicosis, unspecified without thyrotoxic crisis or storm; Z79.899 Other long term (current) drug therapy; Z88.6 Allergy status to analgesic agent; Z98.890 Other specified postprocedural states; Z68.35 Body mass index [BMI] 35.0-35.9, adult
CPT/HCPCS: 45378; J2001; J2704; J3010; J3490; J7120; 00811